=== PATIENT | male | born 1990 | race Caucasian/White ===

== ENCOUNTER → 2020-06-27 13:24 | Outpatient (REF) | payer MEDICAID, SELFPAY ==
--- NOTE | 2020-06-27 14:15 | ECG_ITS ---
Hook-up date: 2020-06-27 13:34:00 Duration: 47:59:00 Test Indications: PALPITATIONS Medications: [id number] QRS complexes 2 Ventricular ectopics which represent <1 % of total QRS comp. 60 Supraventricular ectopics which represent <1 % of total QRS comp. * Paced QRS complexs which represent % of total QRS comp. VENTRICULAR ECTOPY 2 Isolated 0 Bigeminal Cycles 0 Couplets 0 Runs 0 Beats in Runs * Beats LONGEST at * BPM at :: -- * Beats FASTEST at * BPM at :: -- SUPRAVENTRICULAR ECTOPY 48 Isolated 0 Couplets 0 Runs 0 Beats in Runs 0 Beats LONGEST at 0 BPM at :: -- 0 Beats FASTEST at 0 BPM at :: -- HEART RATES 50 MIN at 05:58:41 2020-06-28 73 AVG 138 MAX at 11:04:01 2020-06-28 LONGEST RR 1.4160 secs at 05:58:36 2020-06-28 S-T LEVELS Channel 1 - 128 mm at 13:34:00 2020-06-27 - 128 mm at 13:34:00 2020-06-27 Channel 2 - 128 mm at 13:34:00 2020-06-27 - 128 mm at 13:34:00 2020-06-27 Channel 3 - 128 mm at 03:25:31 -- - 128 mm at 03:25:31 Basic rhythm Normal sinus rhythm No long pause or profound bradycardia Rare Premature atrial complexes Patient did not report any symptoms in the diary Referred By: Hanna Shanks Overread By: HANNAH BROWN MD
== END ==
LOC: HO.CARD 13:24
PROVIDERS: PCP Student in an Organized Health Care Education/Training Program; Visit Provider Student in an Organized Health Care Education/Training Program
DX: R00.2 Palpitations (principal)
CPT/HCPCS: 93225; 93226

== ENCOUNTER 2021-03-26 13:18 | Outpatient (REF) | payer MEDICAID, SELFPAY ==
--- NOTE | ~2021-03-26 | US_ITS ---
EXAMINATION: US VENOUS ULTRASOUND WITH DOPPLER LOWER EXTREMITY, BILATERAL CLINICAL INFORMATION: Pain in both thighs and knees evaluate for DVT COMPARISON: None TECHNIQUE: Ultrasound of the deep veins is performed from the hip to the calf with compression sonography and color and pulse Doppler assessment. Spectral analysis with color-flow imaging is performed. FINDINGS: RIGHT: There is normal venous compression and respiratory variation and augmented flow. The visualized common femoral vein, superficial femoral vein, profunda femoral vein, popliteal vein, and the trifurcation region shows no evidence of deep venous thrombosis. There is no significant popliteal fossa cyst. LEFT: There is normal venous compression and respiratory variation and augmented flow. The visualized common femoral vein, superficial femoral vein, profunda femoral vein, popliteal vein, and the trifurcation region shows no evidence of deep venous thrombosis. There is no significant popliteal fossa cyst. If the patient's symptoms persist, followup ultrasound in 5 days 7 days might be of value to exclude proximal propagation from a non-visualized calf vein. US/US venous duplex LE BI IMPRESSION: No DVT demonstrated in the bilateral lower extremity.
--- NOTE | ~2021-03-26 | US_ITS ---
EXAMINATION: US SOFT TISSUE NECK CLINICAL INFORMATION: Localized enlarged lymph node, right posterior auricular mass. COMPARISON: Cervical soft tissue ultrasound 08/26/2019. TECHNIQUE: Ultrasound of the neck soft tissues is performed with high- frequency ojeda-scale imaging and color Doppler. FINDINGS: THYROID BED: Targeted sonography of the right posterior auricular region demonstrates no suspicious masses or abnormal fluid collections. 3 discrete lymph nodes are identified which exhibit normal size, hilar architecture and color Doppler vascularity. The first lymph node measures 1.4 cm x 0.4 cm x 0.9 cm. Second lymph node 0.9 cm x 0.3 cm x 0.9 cm. The third lymph node 1.2 cm x 0.4 cm x 1.1 cm. Club Attendant grayscale sonographic images of the contralateral left posterior auricular area are acquired which also demonstrates similar benign-appearing scattered normal size lymph nodes. US/US soft tiss head and/or neck IMPRESSION: Normal targeted sonography of the right posterior auricular region corresponding to the area of concern. Sonography in this region demonstrates 3 normal appearing lymph nodes without enlargement or inflammatory changes. Similar appearing lymph nodes are noted in the contralateral left posterior auricular region which was evaluated for comparison.
== END 2021-03-26 13:19 | disposition home or self-care (01) ==
LOC: HO.HMGCX 13:18
PROVIDERS: PCP Student in an Organized Health Care Education/Training Program; Visit Provider Emergency Medicine
DX: R59.0 Localized enlarged lymph nodes (principal); M79.651 Pain in right thigh; M79.652 Pain in left thigh; M25.561 Pain in right knee
CPT/HCPCS: 76536; 93970

== ENCOUNTER 2021-04-10 10:19 | Outpatient (REF) | payer MEDICAID, SELFPAY ==
--- NOTE | ~2021-04-10 | MR_ITS ---
EXAMINATION: MR CERVICAL SPINE WITHOUT CONTRAST CLINICAL INFORMATION: 30-year-old with neck pain. No history of injury. COMPARISON: None TECHNIQUE: MRI of the cervical spine was obtained using routine sequences without contrast. FINDINGS: Alignment: The cervical spine is anatomically aligned. No spondylolisthesis or retrolisthesis with normal lordotic curvature. Craniocervical Junction/C1-C2 Articulations: Intact and aligned. There are bony productive changes at the margins of the C1-C2 facet joints bilaterally consistent with some degree of OA without marrow edema or significant joint effusion. Visualized Intracranial Structures: Within normal limits. Vertebral Bodies: Vertebral body heights are well-maintained. Disc Spaces and Endplates: Mild disc space height loss is noted at C6-C7 and C4-C5. Disc desiccation is noted between C2-C3 and C6-C7 inclusive. Minor anterior marginal endplate spurring noted at C5-C6 and C6-C7. Bone Marrow: No significant marrow-replacing process or bone marrow edema. Subcentimeter benign vertebral hemangioma noted within the T1 vertebral body. C2-C3: No disc herniation and no significant DJD, canal or neuroforaminal stenosis. C3-C4: Tiny central disc protrusion noted. No significant canal stenosis. Minor facet arthrosis noted bilaterally without significant neural foraminal stenosis. C4-C5: No disc herniation. Mild left and [id number] right-sided facet arthropathy noted without significant canal or neural foraminal stenosis. C5-C6: Shallow central disc protrusion noted with a tiny central annular fissure without significant thecal sac encroachment. [id number] left-sided facet arthropathy noted without significant canal or neuroforaminal stenosis. C6-C7: Small shallow central to right paramedian disc protrusion with slight flattening of the central dural sac without cord impingement or canal stenosis. There is uncovertebral spurring on the left with no significant facet arthropathy. There is mild left-sided foraminal narrowing. C7-T1: No disc herniation. Moderate left-sided facet arthropathy noted. No significant canal or neuroforaminal stenosis. T1-T2: No disc herniation. No significant facet arthrosis, canal or neuroforaminal stenosis. The cervical and visualized upper thoracic spinal cord is normal in morphology, caliber and signal intensity throughout. MR/MR cervical spine wo con IMPRESSION: 1. Normal spinal alignment. Mild osteoarthritic degenerative changes at the C1-C2 facet joints bilaterally. 2. Small central disc protrusion with central annular fissuring at C5-C6 without thecal sac encroachment and a very small central disc protrusion at C6-C7 with only minimal indentation of the ventral thecal sac without cord impingement. 3. [id number] degrees of facet arthrosis at multiple levels, with uncinate process spurring on the left at C6-C7. No significant spinal canal stenosis. There is mild left-sided neural foraminal narrowing at C6-C7.
== END 2021-04-10 10:20 | disposition home or self-care (01) ==
LOC: HO.MRI 10:19
PROVIDERS: Visit Provider Student in an Organized Health Care Education/Training Program
DX: M54.12 Radiculopathy, cervical region (principal)
CPT/HCPCS: 72141

== ENCOUNTER 2022-03-05 11:48 | Outpatient (REF) | payer MEDICAID, SELFPAY ==
[2022-03-05 14:25] LABS: Rheumatoid Factor < 15.0 IU/mL (<15.0)
[2022-03-05 14:33] LABS: Erythrocyte Sedimentation Rate 2 MM/HR (0-15)
[2022-03-07 08:48] LABS: Anti Nuclear Antibody Screen NEGATIVE (NEGATIVE)
== END 2022-03-05 11:49 | disposition home or self-care (01) ==
LOC: HO.LAB 11:48
PROVIDERS: PCP Student in an Organized Health Care Education/Training Program; Visit Provider Psychiatry & Neurology Neurology
DX: M19.90 Unspecified osteoarthritis, unspecified site (principal)
CPT/HCPCS: 36415; 85652; 86038; 86039; 86431

== ENCOUNTER 2022-03-25 08:43 | Outpatient (REF) | payer MEDICAID, SELFPAY ==
--- NOTE | ~2022-03-25 | MR_ITS ---
EXAMINATION: MR BRAIN WITHOUT CONTRAST CLINICAL INFORMATION: Diplopia. COMPARISON: None. TECHNIQUE: Multiplanar, multisequence imaging of the brain was performed without contrast. FINDINGS: No diffusion abnormalities are identified to suggest an acute infarct. The ventricles are normal in size. No mass effect or midline shift is seen. No brain parenchymal signal abnormality is noted. No extra-axial fluid collections are seen. The brainstem and cerebellum are normal. The gradient refocused acquisition is normal. The craniovertebral junction, marrow signal, and midline structures are normal. The major intracranial flow voids at the level of the [place] are preserved. The dural venous sinus flow voids are maintained. The mastoid air cells are well aerated. There are small proteinaceous retention cysts in the right maxillary antrum. Mild right frontoethmoid sinus mucosal thickening noted. MR/MR head/brain wo con IMPRESSION: Normal MRI of the brain. No acute process.
== END 2022-03-25 08:44 | disposition home or self-care (01) ==
LOC: HO.MRI 08:43
PROVIDERS: Visit Provider Psychiatry & Neurology Neurology
DX: H53.2 Diplopia (principal)
CPT/HCPCS: 70551

== ENCOUNTER 2024-01-01 10:13 | Outpatient (REF) | payer MEDICAID, SELFPAY ==
[2024-01-01 11:16] LABS: MANUAL DIFF FLAG NO
[2024-01-01 11:29] LABS: Basophils Absolute Auto 0.1 X10*3/uL (0.0-0.2); Basophils Percent Auto 0.8 % (0-2); Eosinophils Absolute Auto 0.1 X10*3/uL (0.0-0.4); Eosinophils Percent Auto 1.3 % (0-4); Hemoglobin 14.3 g/dl (14.0-18.0); Imm Gran Abs Auto 0.03 X10*3/uL (0.00-0.03); Imm Gran Pct Auto 0.4 % (0.0-0.4); Lymphocytes Percent Auto 39.7 % (20-40); Mean Corpuscular HGB Conc 33.3 g/dl (31.0-36.0); Mean Corpuscular Hemoglobin 29.4 pg (27.0-33.0); Mean Corpuscular Volume 88.3 fL (80.0-98.0); Mean Platelet Volume 9.9 fL (9.4-12.4); Monocytes Absolute Auto 0.4 X10*3/uL (0.1-1.2); Monocytes Percent Auto 5.4 % (2-11); Neutrophils Percent Auto 52.4 % (45-73); Platelet Count 267 X10*3/uL (160-400); Red Blood Count 4.87 X10*6/uL (4.60-5.80); Red Cell Distribution Width 13.3 % (11.0-16.0); White Blood Count 7.7 X10*3/uL (4.8-10.8)
[2024-01-01 12:04] LABS: C Reactive Protein 0.19 mg/dL (< or = 0.50)
[2024-01-01 12:10] LABS: Erythrocyte Sedimentation Rate 2 MM/HR (0-15)
[2024-01-01 12:14] LABS: TSH reflex Free T4 1.71 uIU/mL (0.32-4.0); Vitamin D 25-OH Total 35.7 ng/mL (>30)
[2024-01-01 12:30] LABS: Appearance Urine Clear; Color Urine Yellow; Glucose Urine UA Negative (Negative); Leukocyte Esterase Urine Negative (Negative); Nitrite Urine Negative (Negative); PH 6.5 (5.0-9.0); Urine Blood Negative (Negative); Urine Ketones Negative (Negative); Urine Protein Negative (Neg-Trace)
[2024-01-01 12:35] LABS: Bacteria Urine None Seen (None Seen); Hyaline Casts Urine 0-2 /LPF (0-2); RBC Urine 0-2 /HPF (0-2); Squamous Epithelial Cell Urine 0-2 /HPF (0-2); WBC Urine 0-5 /HPF (0-5)
== END 2024-01-01 10:14 | disposition home or self-care (01) ==
LOC: HO.WFDLDS 10:13
PROVIDERS: Visit Provider Internal Medicine
DX: R59.9 Enlarged lymph nodes, unspecified (principal); R53.83 Other fatigue
CPT/HCPCS: 36415; 81001; 82306; 84443; 85025; 85652; 86140

== ENCOUNTER 2024-01-08 13:58 | Outpatient (REF) | payer MEDICAID, SELFPAY ==
--- NOTE | ~2024-01-08 | US_ITS ---
EXAMINATION: US RETROPERITONEAL LIMITED (RENAL ONLY) CLINICAL INFORMATION: History of nephrolithiasis. Right flank pain. COMPARISON: CT abdomen and pelvis 09/06/2021. Renal ultrasound 03/30/2019 and 03/27/2018. X-ray abdomen KUB 02/18/2018 and 11/01/2015. TECHNIQUE: Real-time imaging of the kidneys. FINDINGS: RIGHT KIDNEY: 11.3 x 5.8 x 5.6 cm (SAG x AP x TRV). The kidney is normal in size, and contour. There is increased echogenicity in the area of the papilla corresponding with areas of hyperattenuation seen on the prior CT scan thought to represent medullary nephrocalcinosis. A number of larger foci of increased echogenicity ranging in size from 4 to 6 mm may represent discrete stones. Renal cortical thickness is normal. No hydronephrosis. LEFT KIDNEY: 13.1 x 5.8 x 5.9 cm (SAG x AP x TRV). The kidney is normal in size, and contour. Areas of increased echogenicity are seen in the region of the papilla corresponding with areas of hyperattenuation seen on the prior CT. There are more focal 2 mm and 4 mm discrete areas of hyperechogenicity that may represent discrete stones. Renal cortical thickness is normal. No hydronephrosis. Two tiny 0.5 cm benign Bosniak class I renal cysts are noted which require no additional imaging or follow-up. No solid renal masses are seen. 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 No hydronephrosis is seen. Electronically signed by: Alex Fall MD 03/11/2024 11:51 AM EST
== END 2024-01-08 13:59 | disposition home or self-care (01) ==
LOC: HO.US 13:58
PROVIDERS: Visit Provider Internal Medicine
DX: R10.9 Unspecified abdominal pain (principal); R53.83 Other fatigue
CPT/HCPCS: 76775

== ENCOUNTER 2024-06-15 11:26 | Outpatient (REF) | payer MEDICAID, SELFPAY ==
[2024-06-15 14:41] LABS: Anion Gap 10 (12-20); Blood Urea Nitrogen 13 mg/dL (9-16); Calcium 10.1 mg/dL (8.4-10.2); Carbon Dioxide 29 mmol/L (22-29); Chloride 105 mmol/L (96-108); Estimated Glomerular Filt Rate > 60; Glucose Random 75 mg/dL (60-115); Potassium 3.9 mmol/L (3.3-5.1); Sodium 140 mmol/L (135-145)
[2024-06-15 14:59] LABS: TSH reflex Free T4 1.75 uIU/mL (0.32-4.0)
== END 2024-06-15 11:27 | disposition home or self-care (01) ==
LOC: HO.CHCLDS 11:26
PROVIDERS: Visit Provider Student in an Organized Health Care Education/Training Program
DX: R00.2 Palpitations (principal)
CPT/HCPCS: 36415; 80048; 84443

== ENCOUNTER → 2024-06-21 13:09 | Outpatient (REF) | payer MEDICAID, SELFPAY | LOC: HO.CARD 13:09 | PROVIDERS: PCP Student in an Organized Health Care Education/Training Program; Visit Provider Student in an Organized Health Care Education/Training Program | DX: R00.2 Palpitations (principal) | CPT/HCPCS: 93225 ==